=== PATIENT | female | born 1975 | race Caucasian/White ===

== ENCOUNTER → 2021-07-10 | Outpatient (CLI) | payer OTHER | LOC: HEART 5 10:55 | DX: R07.9 Chest pain, unspecified (principal) | CPT/HCPCS: 93306 ==

== ENCOUNTER 2021-08-04 16:48 | Emergency (ER) | payer OTHER ==
[2021-08-04 17:25] LABS: HEMOGLOBIN 13.9 gm/dl (12.3-15.3); RED BLOOD COUNT 4.35 M/UL (4.00-5.10); WHITE BLOOD COUNT 8.7 K/UL (4.5-11.0)
[2021-08-04 18:03] LABS: BUN/CREATININE RATIO 11 (0-10)
== END 2021-08-04 19:23 | disposition home or self-care (01) ==
LOC: ER1 16:48
DX: I10 Essential (primary) hypertension (principal); K21.9 Gastro-esophageal reflux disease without esophagitis; Z86.16 Personal history of COVID-19; Z88.8 Allergy status to other drugs, medicaments and biological substances
CPT/HCPCS: 80053; 82550; 82553; 84484; 85025; 93005; 99283

== ENCOUNTER 2021-08-09 07:05 | Emergency (ER) | payer OTHER ==
[2021-08-09 08:03] LABS: BUN/CREATININE RATIO 16 (0-10)
[2021-08-09 08:20] LABS: HEMOGLOBIN 14.7 gm/dl (12.3-15.3); RED BLOOD COUNT 4.61 M/UL (4.00-5.10); WHITE BLOOD COUNT 5.3 K/UL (4.5-11.0)
== END 2021-08-09 11:30 | disposition home or self-care (01) ==
LOC: ER1 07:05
PROVIDERS: Physician Assistant Medical
DX: R25.1 Tremor, unspecified (principal); T43.225A Adverse effect of selective serotonin reuptake inhibitors, initial encounter; R10.9 Unspecified abdominal pain; K21.9 Gastro-esophageal reflux disease without esophagitis; X58.XXXA Exposure to other specified factors, initial encounter
CPT/HCPCS: 80053; 81001; 82550; 82553; 84439; 84443; 84484; 85025; 93005; 96374; 96375; 99284; J1200; J2930